=== PATIENT | female | born 1970 | race Caucasian/White ===

== ENCOUNTER 2024-01-14 09:23 | Emergency (ER) | payer MEDICARE, MEDICAID ==
[~2024-01-14] VITALS: Ht 160 cm; Wt 56.8 kg
[~2024-01-14 09:23] MED LIST: ACET-3209 PO; IBUP-1574 PO
[2024-01-14] MEDS ORDERED: HYDR-3965 PO (11:04)
[2024-01-14 11:53] VITALS: BP 122/68; PULSE 70; RESP 16; TEMP 97.5; O2SAT 99
== END 2024-01-14 11:55 | disposition home or self-care (01) ==
LOC: ER 09:24
DX: S82.851A Displaced trimalleolar fracture of right lower leg, initial encounter for closed fracture (principal); Z88.5 Allergy status to narcotic agent; Z88.6 Allergy status to analgesic agent; W18.43XA Slipping, tripping and stumbling without falling due to stepping from one level to another, initial encounter; Y93.01 Activity, walking, marching and hiking; Y92.89 Other specified places as the place of occurrence of the external cause; Y99.8 Other external cause status
CPT/HCPCS: 29515; 73610; 73630; 99284; A6446; A6449

== ENCOUNTER 2024-01-20 07:46 | Emergency (ER) | payer MEDICARE, MEDICAID ==
[~2024-01-20] VITALS: Ht 160 cm; Wt 44.4 kg
[~2024-01-20 07:46] MED LIST changes: +HYDR-3965 PO
[2024-01-20] MEDS: ibuprofen tablet 400 MG TABLET PO ONE (09:46)
[2024-01-20 10:38] VITALS: BP 149/84; PULSE 96; RESP 16; TEMP 97.8; O2SAT 98
== END 2024-01-20 10:39 | disposition home or self-care (01) ==
LOC: ER 07:46
DX: S52.572A Other intraarticular fracture of lower end of left radius, initial encounter for closed fracture (principal); F10.90 Alcohol use, unspecified, uncomplicated; Z88.5 Allergy status to narcotic agent; Z88.8 Allergy status to other drugs, medicaments and biological substances; W18.39XA Other fall on same level, initial encounter; Y93.89 Activity, other specified; Y92.89 Other specified places as the place of occurrence of the external cause; Y99.8 Other external cause status
CPT/HCPCS: 29125; 73110; 99284; A4565

== ENCOUNTER 2024-02-07 15:44 | Outpatient (CLI) | payer MEDICARE, MEDICAID ==
[~2024-02-07 15:44] MED LIST changes: +LORA5TAB9 PO; +NAPH15DR66; +NAPR220T67 PO
== END 2024-02-07 23:59 | disposition home or self-care (01) ==
LOC: RAD 15:44
PROVIDERS: ATTEND Podiatrist Foot & Ankle Surgery
DX: S82.844A Nondisplaced bimalleolar fracture of right lower leg, initial encounter for closed fracture (principal); S82.401A Unspecified fracture of shaft of right fibula, initial encounter for closed fracture; M25.471 Effusion, right ankle; M24.071 Loose body in right ankle; F10.20 Alcohol dependence, uncomplicated; Z72.0 Tobacco use; X58.XXXA Exposure to other specified factors, initial encounter; Y93.89 Activity, other specified; Y92.89 Other specified places as the place of occurrence of the external cause; Y99.8 Other external cause status
CPT/HCPCS: 73700

== ENCOUNTER 2024-02-08 12:18 | Day surgery (SDC) | payer MEDICARE, MEDICAID ==
[2024-02-07 14:16] LABS: BILIRUBIN,URINE NEGATIVE (Neg); CLARITY,URINE CLEAR (Clear); COLOR,URINE STRAW (Yellow); GLUCOSE, URINE NEGATIVE (Neg); KETONES,URINE NEGATIVE (Neg); LEUKOCYTE ESTERASE ,URINE NEGATIVE (Neg); NITRITES, URINE NEGATIVE (Neg); OCCULT BLOOD,URINE NEGATIVE (Neg); PROTEIN,URINE NEGATIVE (Neg); UROBILINOGEN,URINE 0.2 E.U/dL (0.2-1.0)
[2024-02-07 14:17] LABS: BASOPHILS # (AUTO) 0.1 X10'3 (0-0.2); BASOPHILS % (AUTO) 1.5 % (0-1); EOSINOPHILS # (AUTO) 0.1 X10'3 (0-0.9); EOSINOPHILS % (AUTO) 1.3 % (0-6); LYMPHOCYTES # (AUTO) 1.6 X10'3 (1.1-4.8); LYMPHOCYTES % (AUTO) 20.9 % (21-51); MEAN CORPUSCULAR HEMOGLOBIN 35.7 PG (27.0-31.0); MEAN CORPUSCULAR HGB CONC 34.4 g/dL (33.0-36.5); MEAN PLATELET VOLUME 7.3 FL (7.4-10.4); MONOCYTES # (AUTO) 0.5 X10'3 (0-0.9); MONOCYTES % (AUTO) 6.9 % (2-12); NEUTROPHILS # (AUTO) 5.2 X10'3 (1.8-7.7); NEUTROPHILS % (AUTO) 69.4 % (42-75); PRE OP HEMATOCRIT 46.7 % (35.0-45.0); PRE OP PLATELET COUNT 315 X10'3 (140-440); PRE OP WHITE BLOOD COUNT 7.5 10'3 (4.8-10.8); RED BLOOD COUNT 4.49 X10'6 (4.20-5.60); RED CELL DISTRIBUTION WIDTH 12.6 % (11.5-14.5)
[2024-02-07 14:24] LABS: UA COLLECTION TYPE CLN CATCH MIDSTREAM
[2024-02-07 14:30] LABS: ALBUMIN 4.1 G/DL (3.4-5.0); ALBUMIN/GLOBULIN RATIO 1.2 (1.1-1.5); ALKALINE PHOSPHATASE 114 IU/L (46-116); BLOOD UREA NITROGEN 8 MG/DL (7-18); BUN/CREATININE RATIO 11.6 (10.0-20.0); CALCIUM 9.7 MG/DL (8.5-10.1); CHLORIDE 99 MMOL/L (99-107); CREATININE 0.69 MG/DL (0.40-0.90); PRE OP ALT 17 U/L (30-65); PRE OP ANION GAP 9 (8-16); PRE OP AST 23 U/L (10-37); PRE OP BILIRUB, TOTAL 0.5 MG/DL (0.0-1.0); PRE OP GLUCOSE 96 MG/DL (70-104); PRE OP POTASSIUM 4.7 MMOL/L (3.4-5.1); PRE OP SODIUM 135 MMOL/L (135-145); TOTAL CARBON DIOXIDE 27.1 MMOL/L (24-32); TOTAL PROTEIN 7.5 G/DL (6.4-8.2); eGFR 89 ML/MIN
[~2024-02-08] VITALS: Ht 160 cm; Wt 57.0 kg
[2024-02-08] MEDS: ceFAZolin 2gm in dextrose, iso 50 ML IV ONE (05:30)
[~2024-02-08 12:18] MED LIST changes: -ACET-3209 PO; +BUPIVAcaine/PF 2.5mg/ml (0.25%) 10ml vial ONE; -HYDR-3965 PO; -IBUP-1574 PO; +bacitracin 15gm ointment TP ONE
[2024-02-08 12:50] VITALS: BP 140/75; PULSE 97; RESP 16; TEMP 97.4; O2SAT 99
[2024-02-08] MEDS: famotidine 20mg tablet PO ONE (13:23)
[2024-02-08] MEDS: ringers solution, lacted 1,000 ML IV SCH (13:24)
[2024-02-08] MEDS ORDERED: cloNIDine hcl/PF 100mcg/ml inj ONE (13:34)
[2024-02-08] MEDS ORDERED: morphine 4 MG/ML inj SYRINge IV PRN (13:35)
[2024-02-08] MEDS ORDERED: meperidine/PF 25mg/ml syringe IV PRN ×2 (13:35)
[2024-02-08] MEDS ORDERED: ondansetron/PF 4mg/2ml inj IV PRN (13:35)
[2024-02-08] MEDS ORDERED: proCHLORperazine 10 MG/2 ml inj IV PRN (13:35)
[2024-02-08] MEDS ORDERED: labetalol 20mg/4ml (5mg/ml) syringe IV PRN (13:35)
[2024-02-08] MEDS ORDERED: morphine 2 MG/ML inj. syringe IV PRN (13:35)
[2024-02-08] MEDS ORDERED: hydrALAZINE 20mg/ml inj. IV PRN (13:35)
[2024-02-08] MEDS ORDERED: ringers solution, lacted 1,000 ML IV SCH (13:35)
[2024-02-08] MEDS ORDERED: sevoflurane 250ml liquid IH ONE (14:16)
[2024-02-08] MEDS ORDERED: midazolam 1 mg/ML 2ml injection ONE (14:23)
[2024-02-08] MEDS ORDERED: fentaNYL/PF 50MCG/1 ML 2ML syringe ONE (14:40)
[2024-02-08] MEDS ORDERED: 0.9 % SODIUM CHLORIDE 10 ML VIAL ONE ×2 (15:05)
[2024-02-08] MEDS ORDERED: dexamethasone sod phosphate 4mg/ml inj. ONE (15:05)
[2024-02-08] MEDS ORDERED: ROPIVAcaine 0.5% (5mg/ml) 30ml vial ONE (15:05)
[2024-02-08] MEDS ORDERED: ondansetron/PF 4mg/2ml inj ONE (15:05)
[2024-02-08] MEDS ORDERED: propofol inj 20 ML IV ONE ×2 (15:05)
[2024-02-08] MEDS ORDERED: LIDOcaine 2% (20mg/ml) 5ml vial ONE (15:05)
[2024-02-08] MEDS ORDERED: meperidine/PF 25mg/ml syringe ONE (15:48)
[2024-02-08 16:02] VITALS: BP 136/62; PULSE 76; RESP 16; O2SAT 100
[2024-02-08 16:10] VITALS: BP 130/70; PULSE 73; RESP 11; O2SAT 97
[2024-02-08 16:20] VITALS: BP 96/73; PULSE 70; RESP 12; O2SAT 97
[2024-02-08 16:30] VITALS: BP 114/70; PULSE 72; RESP 12; O2SAT 95
[2024-02-08 16:40] VITALS: BP 113/56; PULSE 66; O2SAT 96
[2024-02-08] MEDS: acetaminophen 1,000mg/100ml IV 100 ML IV ONE (17:15)
== END 2024-02-08 16:52 | disposition home or self-care (01) ==
LOC: PAS 12:18
PROVIDERS: ATTEND Podiatrist Foot & Ankle Surgery
DX: S82.51XA Displaced fracture of medial malleolus of right tibia, initial encounter for closed fracture (principal); S82.831A Other fracture of upper and lower end of right fibula, initial encounter for closed fracture; X58.XXXA Exposure to other specified factors, initial encounter; Y93.89 Activity, other specified; Y92.89 Other specified places as the place of occurrence of the external cause; Y99.8 Other external cause status; Z79.899 Other long term (current) drug therapy; Z98.890 Other specified postprocedural states; Z88.8 Allergy status to other drugs, medicaments and biological substances; Z98.51 Tubal ligation status; F17.210 Nicotine dependence, cigarettes, uncomplicated; G89.18 Other acute postprocedural pain; Z79.82 Long term (current) use of aspirin; Z88.6 Allergy status to analgesic agent; Z72.89 Other problems related to lifestyle
CPT/HCPCS: 27766; 27792; 36415; 64450; 73700; 76942; 80053; 81003; 82948; 85025; 93005; A4618; A6223; A6253; A6402; A6449; A7000; C1713; J0690; J0735; J1100; J2003; J2175; J2250; J2405; J2704; J2795; J3010; J3490; J7030; J7120; Z7506; Z7508; Z7512; Z7610

== ENCOUNTER 2024-02-18 09:09 | Day surgery (SDC) | payer MEDICARE, MEDICAID ==
[~2024-02-18] VITALS: Ht 160 cm; Wt 57.5 kg
[~2024-02-18 09:09] MED LIST changes: +LIDOcaine 2% (20mg/ml) 5ml vial ONE; -bacitracin 15gm ointment TP ONE
[2024-02-18] MEDS ORDERED: ringers solution, lacted 1,000 ML IV SCH ×2 (09:22→11:25)
[2024-02-18 09:26] VITALS: BP 143/91; PULSE 98; RESP 16; TEMP 98.7; O2SAT 100
[2024-02-18] MEDS ORDERED: ceFAZolin 2gm in dextrose, iso 50 ML IV ONE (09:45)
[2024-02-18] MEDS ORDERED: ERGO500054 PO (10:02)
[2024-02-18] MEDS ORDERED: ASPI-845 PO (10:02)
[2024-02-18] MEDS ORDERED: HYDR-3972 PO (10:02)
[2024-02-18] MEDS ORDERED: cloNIDine hcl/PF 100mcg/ml inj ONE (10:35)
[2024-02-18] MEDS ORDERED: sevoflurane 250ml liquid IH ONE (10:36)
[2024-02-18] MEDS ORDERED: propofol inj 20 ML IV ONE (10:37)
[2024-02-18] MEDS ORDERED: fentaNYL/PF 50MCG/1 ML 2ML syringe ONE (10:37)
[2024-02-18] MEDS ORDERED: midazolam 1 mg/ML 2ml injection ONE (10:37)
[2024-02-18] MEDS ORDERED: ROPIVAcaine 0.5% (5mg/ml) 30ml vial ONE (10:39)
[2024-02-18] MEDS ORDERED: morphine 2 MG/ML inj. syringe IV PRN (11:25)
[2024-02-18] MEDS ORDERED: ondansetron/PF 4mg/2ml inj IV PRN (11:25)
[2024-02-18] MEDS ORDERED: proCHLORperazine 10 MG/2 ml inj IV PRN (11:25)
[2024-02-18] MEDS ORDERED: meperidine/PF 25mg/ml syringe IV PRN ×3 (11:25)
[2024-02-18] MEDS ORDERED: morphine 4 MG/ML inj SYRINge IV PRN (11:25)
[2024-02-18] MEDS ORDERED: dexamethasone sod phosphate 4mg/ml inj. ONE (11:38)
[2024-02-18] MEDS ORDERED: ondansetron/PF 4mg/2ml inj ONE (11:38)
[2024-02-18 12:01] VITALS: BP 123/68; PULSE 66; RESP 14; O2SAT 98
[2024-02-18 12:10] VITALS: BP 114/64; PULSE 69; RESP 15; O2SAT 96
[2024-02-18 12:20] VITALS: BP 127/71; PULSE 69; RESP 12; O2SAT 97
[2024-02-18 12:30] VITALS: BP 108/62; PULSE 73; RESP 14; O2SAT 99
== END 2024-02-18 12:41 | disposition home or self-care (01) ==
LOC: PAS 09:09
PROVIDERS: ATTEND Orthopaedic Surgery Hand Surgery
DX: S52.572A Other intraarticular fracture of lower end of left radius, initial encounter for closed fracture (principal); F17.210 Nicotine dependence, cigarettes, uncomplicated; W19.XXXA Unspecified fall, initial encounter; Y93.89 Activity, other specified; Y92.091 Bathroom in other non-institutional residence as the place of occurrence of the external cause; Y99.8 Other external cause status; Z79.899 Other long term (current) drug therapy; Z98.890 Other specified postprocedural states; Z72.89 Other problems related to lifestyle; Z88.8 Allergy status to other drugs, medicaments and biological substances; G89.18 Other acute postprocedural pain
CPT/HCPCS: 25609; 64417; 82948; A4215; A4618; A6402; A6449; A7000; C1713; J0690; J0735; J1100; J2250; J2405; J2704; J2795; J3010; J7030; J7120; Z7506; Z7508; Z7512; Z7610; J2003; J3490